=== PATIENT | male | born 1935 | race Caucasian/White ===

== ENCOUNTER 2020-03-22 09:25 | Day surgery (SDC) | payer MEDICARE, BC ==
[~2020-03-22] VITALS: Ht 177.8 cm; Wt 69.1 kg
[2020-03-22] MEDS ORDERED: CHLORHEXIDINE 15 ML UDC ONE (09:53)
[2020-03-22] MEDS ORDERED: PLEASE ENTER HEIGHT AND WEIGHT MC SCH (10:00)
[2020-03-22] MEDS ORDERED: PLEASE ENTER ALLERGIES MC SCH (10:00)
[2020-03-22] MEDS ORDERED: LACTATED RINGERS 1,000 ML IV SCH (10:00)
[2020-03-22] MEDS ORDERED: CHLORHEXIDINE 15 ML UDC MM ONE (10:00)
[2020-03-22 10:09] VITALS: BP 164/78
[2020-03-22] MEDS ORDERED: aspirin PO (10:09)
[2020-03-22] MEDS ORDERED: multivitamin PO (10:09)
[2020-03-22] MEDS ORDERED: atorvastatin PO (10:09)
[2020-03-22] MEDS ORDERED: amlodipine PO (10:09)
[2020-03-22] MEDS ORDERED: docusate PO (10:09)
[2020-03-22] MEDS ORDERED: co q 10 PO (10:09)
[2020-03-22] MEDS ORDERED: vitamin d3 PO (10:09)
[2020-03-22] MEDS ORDERED: effexor PO (10:09)
[2020-03-22] MEDS ORDERED: losartan PO (10:09)
[2020-03-22] MEDS ORDERED: finasteride PO (10:09)
[2020-03-22 10:34] LABS: INTERNATIONAL NORMALIZED RATIO 1.07 (0.93-1.1); PROTHROMBIN TIME 11.3 Seconds (9.6-11.5)
[2020-03-22 10:36] LABS: ANION GAP 7 mmol/L (5-15); CALCIUM 9.5 mg/dL (8.5-10.1); CHLORIDE 111 mmol/L (98-107); CREATININE 1.45 mg/dL (0.7-1.3)
[2020-03-22 10:37] LABS: BASOPHILS % (AUTO) 0 % (0-1); EOSINOPHILS % (AUTO) 0 % (1-7); LYMPHOCYTES % (AUTO) 8 % (22-44); MEAN CORPUSCULAR HEMOGLOBIN 31.1 pg (27.5-34.5); MEAN CORPUSCULAR HGB CONC 32.7 g/dL (33.2-36.2); MONOCYTES % (AUTO) 6 % (2-9); NEUTROPHILS % (AUTO) 86 % (42-75); PLATELET COUNT 223 x10^3/uL (130-400); RED BLOOD COUNT 4.16 x10^6/uL (4.38-5.82); RED CELL DISTRIBUTION WIDTH 13.1 % (9.4-14.8)
[2020-03-22 11:04] LABS: MD SCAN
[2020-03-22] MEDS ORDERED: VASOPRESSIN 20 UNIT/ML, 1ML ONE (11:29)
[2020-03-22] MEDS ORDERED: LIDOCAINE PF 2%, 5ML ONE (11:29)
[2020-03-22] MEDS ORDERED: PROPOFOL 10 MG/ML, 20ML ONE (11:29)
[2020-03-22] MEDS ORDERED: GLYCOPYRROLATE 0.2MG/1ML, 5ML ONE (11:29)
[2020-03-22] MEDS ORDERED: CEFAZOLIN 1,000 MG ONE (11:29)
[2020-03-22] MEDS ORDERED: NEOSTIGMINE 1 MG/ML, 10ML ONE (11:29)
[2020-03-22] MEDS ORDERED: KETOROLAC 30 MG/1 ML ONE (11:29)
[2020-03-22] MEDS ORDERED: DEXAMETHASONE 4 MG/ML, 1ML ONE (11:29)
[2020-03-22] MEDS ORDERED: ROCURONIUM 10 MG/ML,10ML ONE (11:29)
[2020-03-22] MEDS ORDERED: ONDANSETRON 2MG/ML, 2ML ONE (11:29)
[2020-03-22] MEDS ORDERED: FENTANYL PF 100 MCG/2ML ONE ×2 (11:35→13:37)
[2020-03-22] MEDS ORDERED: OMNIPAQUE 350 MG/ML, 50 ML BOTTLE IV ONE (12:14)
[2020-03-22] MEDS ORDERED: OMNIPAQUE 350 MG/ML, 50 ML BOTTLE ONE (13:04)
[2020-03-22] MEDS ORDERED: OXYcodone 5 MG/5 ML ORAL.SOL UDC ONE (13:37)
[2020-03-22] MEDS ORDERED: FENTANYL PF 100 MCG/2ML IV PRN (14:00)
[2020-03-22] MEDS ORDERED: OXYcodone 5 MG/5 ML ORAL.SOL UDC PO PRN (14:00)
== END 2020-03-22 16:00 | disposition home or self-care (01) ==
LOC: OUT 09:25
PROVIDERS: ATTEND Urology
DX: N20.0 Calculus of kidney (principal); Z20.828 Contact with and (suspected) exposure to other viral communicable diseases; Q60.0 Renal agenesis, unilateral; I10 Essential (primary) hypertension; E78.5 Hyperlipidemia, unspecified; Z79.01 Long term (current) use of anticoagulants; Z79.899 Other long term (current) drug therapy; Z85.51 Personal history of malignant neoplasm of bladder; Z87.891 Personal history of nicotine dependence; Z98.890 Other specified postprocedural states
CPT/HCPCS: 36415; 52356; 80048; 82360; 85025; 85610; 87635; 88300; 93005; C1726; C1758; C2617; J0690; J1100; J1885; J2405; J2704; J2710; J3010; J7120; Q9967; 76000